=== PATIENT | male | born 1945 | race Caucasian/White ===

== ENCOUNTER 2018-06-28 14:53 | Inpatient (IN) | payer MEDICARE, OTHER ==
[~2018-06-28] VITALS: Ht 185.4 cm; Wt 68.5 kg
--- NOTE | 2018-06-28 15:00 | NUR ---
PT BIB RA 860 from home with c/o generealized weakness, PT IS AAOX3, NOT IN RESPIRATORY DISTRESS, V/S STABLE, KEPT RESTED AND COMFORTABLE, AWAITING ER MD FOR EVAL.
--- NOTE | 2018-06-28 15:20 | NUR ---
LABS DRAWNED AND SENT TO LAB. AWAITING RESULTS.
[2018-06-28 16:19] LABS: BASOPHILS % (AUTO) 0.2 % (0.0-2.0); EOSINOPHILS % (AUTO) 0.4 % (0.0-6.0); HEMATOCRIT 32 % (39-51); HEMOGLOBIN 10.8 g/dL (13.5-17.5); LYMPHOCYTES # (AUTO) 0.8 /CMM (0.8-4.8); MEAN CORPUSCULAR HGB CONC 34 g/dl (31.0-36.0); MEAN CORPUSCULAR VOLUME 97 fL (80-96); MONOCYTES # (AUTO) 0.4 /CMM (0.1-1.30); MONOCYTES % (AUTO) 7.9 % (2.0-12.0); NEUTROPHILS # (AUTO) 4.1 /CMM (1.8-8.9); NEUTROPHILS % (AUTO) 76.5 % (43.0-81.0); PLATELET COUNT (AUTO) 118 /CMM (150-450); RED BLOOD CELL COUNT(AUTO) 3.26 MIL/uL (4.5-6.0); WHITE BLOOD COUNT (AUTO) 5.3 K/uL (4.3-11.0)
[2018-06-28 16:31] LABS: CALCIUM, SERUM 8.8 mg/dL (8.5-10.1); CARBON DIOXIDE 21 mmol/L (21-32); CHLORIDE 93 mmol/L (98-107); CREATININE 1.5 mg/dL (0.6-1.3); GLUCOSE 96 mg/dL (74-106); POTASSIUM 4.2 mmol/L (3.5-5.1); SODIUM SERUM 130 mmol/L (136-145); UREA NITROGEN, BLOOD 45 mg/dL (7-18)
[2018-06-28 16:38] LABS: ALANINE AMINOTRANSFERASE 34 U/L (12-78); ALKALINE PHOSPHATASE 91 U/L (46-116); ASPARTATE AMINOTRANSFERASE 74 U/L (15-37); BILIRUBIN,DIRECT 0.8 mg/dL (0.0-0.2); BILIRUBIN,TOTAL 1.7 mg/dL (0.2-1.0); TOTAL PROTEIN, SERUM 6.7 g/dL (6.4-8.2)
--- NOTE | 2018-06-28 17:31 | NUR ---
URINE SPECIMEN COLLECTED AND SENT TO LAB.
[2018-06-28] MEDS ORDERED: ASPI-992 PO (17:54)
[2018-06-28] MEDS ORDERED: ATOR40TA PO (17:54)
[2018-06-28] MEDS ORDERED: FOLI1TAB16 PO (17:54)
[2018-06-28] MEDS ORDERED: THIA100T74 PO (17:54)
[2018-06-28] MEDS ORDERED: TRAZ-182 PO (17:54)
[2018-06-28] MEDS ORDERED: AMLO5TAB9 PO (17:54)
[2018-06-28 18:01] LABS: APPEARANCE,URINE Clear (CLEAR); BILIRUBIN,URINE LARGE (NEGATIVE); BLOOD, URINE Trace-intact Ery/uL (NEGATIVE); COLOR,URINE Yellow (YELLOW); KETONES,URINE 80 (NEGATIVE); LEUKOCYTE ESTERASE ,URINE Negative (NEGATIVE); NITRITE, URINE Negative (NEGATIVE); PH,URINE 5.5 (5.0-8.0); PROTEIN,URINE 30 mg/dl (NEGATIVE); UGLUCOSE Negative (NEGATIVE)
[2018-06-28 18:24] LABS: BACTERIA,URINE Few /HPF (None Seen); SQUAMOUS EPITHELIAL CELL,UR Few /HPF (None Seen); WBC,URINE 0-2 /HPF (0-3)
[2018-06-28] MEDS ORDERED: IV NS 0.9% 1,000 ML BAG IV ONE (19:00)
[2018-06-28] MEDS ORDERED: LORAZEPAM 1 MG TABLET ONE (19:12)
[2018-06-28] MEDS ORDERED: AMLODIPINE BESYLATE 5 MG TABLET ONE (19:12)
--- NOTE | 2018-06-28 19:18 | NUR ---
REPORT GIVEN TO NIMESH WILSON FOR JC.
[2018-06-28] MEDS ORDERED: LORAZEPAM 1 MG TABLET PO ONE (19:30)
[2018-06-28] MEDS ORDERED: AMLODIPINE BESYLATE 5 MG TABLET PO ONE (19:30)
[2018-06-28] MEDS ORDERED: ONDANSETRON HCL/PF 4 MG/2 ML VIAL IVP PRN (20:30)
[2018-06-28] MEDS ORDERED: MAGNESIUM HYDROXIDE 30 ML UDC PO PRN (20:30)
[2018-06-28] MEDS ORDERED: HYDROCODONE/APAP 5/325MG 1 EACH TABLET PO PRN (20:30)
[2018-06-28] MEDS ORDERED: ACETAMINOPHEN 325 MG TABLET PO PRN (20:30)
[2018-06-28] MEDS ORDERED: Z GUARD REMEDY 2 OZ OINT TP PRN (20:30)
[2018-06-28] MEDS ORDERED: MAG HYDROX/AL HYDROX/SIMETH 30 ML UDC PO PRN (20:30)
--- NOTE | 2018-06-28 20:44 | NUR ---
PT ADMIT TO TELE ROOM 304-[address] HILL
[2018-06-28] MEDS ORDERED: DEXTROSE 50%-WATER 50 ML DISP.SYRIN IV PRN (21:00)
--- NOTE | 2018-06-28 21:10 | NUR ---
REPORT GIVEN TO NIMESH DEAN FOR JC
[2018-06-28 21:30] VITALS: BP 122/77
[2018-06-28] MEDS: IV NS 0.9% 1,000 ML IV PRN (21:46)
[2018-06-28 22:00] VITALS: BP 122/77
[2018-06-28] MEDS: INSULIN REGULAR, HUMAN 100 UNIT/ML 3 ML VIAL SQ PRN (22:19)
[2018-06-28] MEDS: ATORVASTATIN 40 MG TABLET PO SCH (22:21)
[2018-06-28] MEDS: TRAZODONE 50 MG TABLET PO SCH (22:22)
[2018-06-28] MEDS: BLOOD SUGAR DIAGNOSTIC 1 EACH STRIP IN SCH (22:24)
--- NOTE | 2018-06-28 22:30 | NUR ---
INFRASTRUCTURE PROJECT MANAGER RECEIVE PT VIA [employer] FROM [employer].Sun Number AT 2130, PT A/O X3 WITH PERIOD OF FORGETFULNESS, RESPIRATIONS EVEN AN UNLABORED. ADMIT TO TELE WITH READING OF SINUS RHYTHM 71 IN THE TELE MONITOR, HEAD TO TOE ASSESSMENT IS DONE. NO CHEST PAIN, NOT IN DISTRESS. KEPT CLEAN AND DRY AND COMFORT. WILL CONTINUE TO MTR.
[2018-06-29] VITALS (7 sets, daily range): BP systolic 103–148; BP diastolic 63–114
[2018-06-29] MEDS: BLOOD SUGAR DIAGNOSTIC 1 EACH STRIP IN SCH ×4 (06:04→21:11)
[2018-06-29] MEDS: INSULIN REGULAR, HUMAN 100 UNIT/ML 3 ML VIAL SQ PRN ×4 (06:05→21:22)
--- NOTE | 2018-06-29 06:17 | NUR ---
RN CLOSING NOTE PT IN BED RESTING ASLEEP AND EASILY AWAKEN. TOLERATING ROOM AIR 100%. SINUS RHYTHM 70 IN THE TELE MONITOR NO S/S OF RESP DISTRESS OR SOB. GOOD SKIN CARE PROVIDED. ALL PT NEEDS ANTICIPATED AND MET. KEPT CLEAN AND DRY AND COMFORT, SAFETY MEASURES IN PLACE, CALL LIGHT WITHIN REACH. WILL ENDORSE TO FIRE CHIEF FOR JC.
[2018-06-29 06:26] LABS: BASOPHILS % (AUTO) 0.2 % (0.0-2.0); EOSINOPHILS % (AUTO) 1.6 % (0.0-6.0); HEMATOCRIT 26 % (39-51); HEMOGLOBIN 8.8 g/dL (13.5-17.5); LYMPHOCYTES % (AUTO) 24.1 % (20.0-44.0); MEAN CORPUSCULAR HGB CONC 34 g/dl (31.0-36.0); MEAN CORPUSCULAR VOLUME 97 fL (80-96); MONOCYTES # (AUTO) 0.5 /CMM (0.1-1.30); NEUTROPHILS # (AUTO) 2.7 /CMM (1.8-8.9); NEUTROPHILS % (AUTO) 63.1 % (43.0-81.0); PLATELET COUNT (AUTO) 83 /CMM (150-450); RED BLOOD CELL COUNT(AUTO) 2.67 MIL/uL (4.5-6.0); WHITE BLOOD COUNT (AUTO) 4.3 K/uL (4.3-11.0)
[2018-06-29 06:38] LABS: CALCIUM, SERUM 7.8 mg/dL (8.5-10.1); CARBON DIOXIDE 24 mmol/L (21-32); CHLORIDE 98 mmol/L (98-107); CREATININE 1.3 mg/dL (0.6-1.3); GLUCOSE 87 mg/dL (74-106); MAGNESIUM 1.4 mg/dL (1.8-2.4); PHOSPHORUS 2.9 mg/dL (2.5-4.9); POTASSIUM 3.5 mmol/L (3.5-5.1); SODIUM SERUM 133 mmol/L (136-145); UREA NITROGEN, BLOOD 39 mg/dL (7-18)
[2018-06-29 07:04] LABS: CHOLESTEROL 124 mg/dL (<200); HDL CHOLESTEROL 55 mg/dL (40-60); LDL 55 mg/dL (0-99); THYROID STIMULATING HORMONE 7.915 uIU/mL (0.358-3.74); TRIGLYCERIDES 106 mg/dL (30-150)
--- NOTE | 2018-06-29 07:20 | NUR ---
RN OPENING NOTES PT WAS RECEIVED ON BED AT LOWEST AND LOCKED POSITION WITH SIDE RAILS UP X2, A/O X3, BREATHING EVEN AND UNLABORED ON RA, NO S/S OF PAIN OR DISTRESS NOTED, IV PATENT AND INTACT, SAFETY PRECAUTIONS IN PLACE, CALL LIGHT WITHIN REACH, WILL MONITOR ACCORDINGLY
[2018-06-29 09:16] LABS: LYMPHOCYTES % (MANUAL) 17 % (16-48); MONOCYTES % (MANUAL) 7 % (0-11.0); NEUTROPHILS % (MANUAL) 76 (42-76)
[2018-06-29] MEDS: Magnesium 1GM/D5W 100ML PREMIX 100 ML IV SCH ×4 (09:44→16:12)
[2018-06-29] MEDS: AMLODIPINE BESYLATE 5 MG TABLET PO SCH (09:44)
[2018-06-29] MEDS: FOLIC ACID 1 MG TABLET PO SCH (09:44)
[2018-06-29] MEDS: THIAMINE HCL 100 MG TABLET PO SCH (09:44)
--- NOTE | 2018-06-29 12:17 | NUR ---
RN NOTES PT BG WAS NOTED TO BE 171, 3 UNITS OF INSULIN WERE REQUIRED TO BE GIVING PER SLIDING SCALE BUT PT REFUSED. EDUCATION WAS PROVIDED BUT HE STILL REFUSED
[2018-06-29] MEDS ORDERED: ASPIRIN 81 MG TAB.CHEW PO SCH (13:00)
[2018-06-29 16:00] LABS: IRON, SERUM 45 ug/dl (50-175); TOTAL IRON BINDING CAPACITY 137 ug/dl (250-450)
--- NOTE | 2018-06-29 16:20 | NUR ---
RN NOTES PT WAS TAKEN DOWN AT THIS FOR MRI
--- NOTE | 2018-06-29 17:09 | NUR ---
RN NOTES PT WAS BROUGHT BACK FROM MRI AT THIS TIME
--- NOTE | 2018-06-29 17:49 | NUR ---
RN NOTES PT BLOOD GLUCOSE WAS NOTED TO BE 162, PT REFUSED INSULIN AT THIS TIME SAYING HE DOES NOT WANT TO BE USING IT, EDUCATION WAS PROVIDED. WILL MONITOR ACCORDINGLY
--- NOTE | 2018-06-29 18:53 | NUR ---
RN CLOSING NOTES PT IN BED AT LOWEST AND LOCKED POSITION WITH SIDE RAILS UP X2, A/O X3, BREATHING EVEN AND UNLABORED ON RA, NO S/S OF PAIN OR DISTRESS NOTED, IV PATENT AND INTACT, SAFETY PRECAUTIONS IN PLACE, CALL LIGHT WITHIN REACH, ALL NEEDS ATTENDED TO, WILL ENDORSE TO SHOWROOM SALES CONSULTANT FOR JC
--- NOTE | 2018-06-29 19:00 | NUR ---
MS RN OPENING NOTES Received pt A/O X3, awake on Gentile's position on bed. On RA, no SOB/respiratory discomfort noted. Denies discomfort at this time. With patent peripheral IV line TRINIDAD Taylor#20, SL. On fall precaution. Kept bed low and locked, siderails x2 up. Call light at bedside. Bed alarm on. Will continue to monitor accordingly.
[2018-06-29] MEDS: TRAZODONE 50 MG TABLET PO SCH (21:10)
[2018-06-29] MEDS: ATORVASTATIN 40 MG TABLET PO SCH (21:10)
--- NOTE | 2018-06-29 21:23 | NUR ---
MS RN NOTES Charlotteu-patti kiran, BS - 152. Patient refused to take Insulin at this time. Explained to patient the benifits of not taking insulin. Patient verbalized understanding but insisted to refused Insulin. Patient A/O, eating independently. Will continue to monitor accordingly.
--- NOTE | 2018-06-29 21:30 | NUR ---
Met with patient, states he lives locally alone on the second floor apartment. States his baseline he was ambulatory and independent with adl's and was driving. Few days prior to admit he was feeling sick and weak, fell at home and with difficulty ambulating. Has no DME or homehealth reported. His pcp is from [place].States has limited source of support, has a sister in [place] and a brother in [place] but states he does not associate with them a lot . Patient agreed to go to local SNF for rehab. referral faxed to [place] contracted SNF [facility] and [facility] [facility] . Addendum: 06/29/18 at 2133 by YOUNG KENNY RN Amended: Links added.
[2018-06-29] MEDS: IV NS 0.9% 1,000 ML IV PRN (21:40)
[2018-06-29] MEDS: ZOLPIDEM TARTRATE 5 MG TABLET PO PRN (22:51)
--- NOTE | 2018-06-30 06:17 | NUR ---
MS RN CLOSING NOTES Patient awake on bed with patent peripheral IV line RAC G#20 with NS infusing well @ 75ml/hr as ordered. Patient on RA, no SOB/respiratory distress noted. Patient denies any discomfort at this time. Request to check BS - 124. No insulin coverage. Patient asked for coffee, given with caution. All needs attended. Kept bed low and locked. On fall precaution. Call light always at bedside. No new unusualities noted throughout the shift. endorsed to the next shift for JC.
[2018-06-30 06:39] LABS: CALCIUM, SERUM 7.5 mg/dL (8.5-10.1); CARBON DIOXIDE 27 mmol/L (21-32); CHLORIDE 100 mmol/L (98-107); CREATININE 1.2 mg/dL (0.6-1.3); GLUCOSE 132 mg/dL (74-106); MAGNESIUM 1.7 mg/dL (1.8-2.4); PHOSPHORUS 1.5 mg/dL (2.5-4.9); POTASSIUM 3.8 mmol/L (3.5-5.1); SODIUM SERUM 133 mmol/L (136-145); UREA NITROGEN, BLOOD 28 mg/dL (7-18)
[2018-06-30 07:18] LABS: BASOPHILS % (AUTO) 0.6 % (0.0-2.0); EOSINOPHILS % (AUTO) 1.5 % (0.0-6.0); HEMATOCRIT 24 % (39-51); HEMOGLOBIN 8.1 g/dL (13.5-17.5); LYMPHOCYTES # (AUTO) 0.8 /CMM (0.8-4.8); LYMPHOCYTES % (AUTO) 23.9 % (20.0-44.0); MEAN CORPUSCULAR HGB CONC 35 g/dl (31.0-36.0); MEAN CORPUSCULAR VOLUME 96 fL (80-96); MONOCYTES # (AUTO) 0.5 /CMM (0.1-1.30); MONOCYTES % (AUTO) 14.2 % (2.0-12.0); NEUTROPHILS # (AUTO) 2.1 /CMM (1.8-8.9); NEUTROPHILS % (AUTO) 59.8 % (43.0-81.0); PLATELET COUNT (AUTO) 88 /CMM (150-450); RED BLOOD CELL COUNT(AUTO) 2.44 MIL/uL (4.5-6.0); WHITE BLOOD COUNT (AUTO) 3.4 K/uL (4.3-11.0)
[2018-06-30] MEDS: BLOOD SUGAR DIAGNOSTIC 1 EACH STRIP IN SCH ×4 (07:26→21:44)
--- NOTE | 2018-06-30 07:52 | NUR ---
MS RN Opening Note Received patient awake, resting in bed. Patient alert and oriented x 3 with episodes of forgetfullness, able to make needs known. Respirations even and unlabored, saturating on room air. No acute distress noted and no complaints of pain at this time. Peripheral IV access on right AC 20 gauge, patent, intact and infusing NS at 75 mL/hr. Safety and Fall precautions in place: bed in lowest and locked position, side rails up x 2, bed alarm on, call light within reach. Reviewed safety measures and plan of care with patient, verbalized understanding. Will continue to monitor and intervene as needed.
[2018-06-30 08:00] VITALS: BP 117/66
[2018-06-30] MEDS: IV NS 0.9% 1,000 ML IV PRN ×2 (08:23→20:51)
[2018-06-30] MEDS: THIAMINE HCL 100 MG TABLET PO SCH (08:25)
[2018-06-30] MEDS: FOLIC ACID 1 MG TABLET PO SCH (08:25)
[2018-06-30] MEDS: AMLODIPINE BESYLATE 5 MG TABLET PO SCH (08:25)
[2018-06-30] MEDS: Magnesium 1GM/D5W 100ML PREMIX 100 ML IV SCH ×2 (08:25→09:39)
[2018-06-30] MEDS: NEUTRA PHOS 1 POWD.PACKET PO SCH ×2 (08:26→16:51)
[2018-06-30 09:37] LABS: EOSINOPHILS % (MANUAL) 2 % (0-4); LYMPHOCYTES % (MANUAL) 29 % (16-48); MONOCYTES % (MANUAL) 13 % (0-11.0); NEUTROPHILS % (MANUAL) 56 (42-76)
--- NOTE | 2018-06-30 12:00 | NUR ---
Mealtime blood glucose check of 155. Patient aware; educated on sliding scale insulin protocol for diabetes management. Patient refused. MD aware.
[2018-06-30] MEDS: INSULIN REGULAR, HUMAN 100 UNIT/ML 3 ML VIAL SQ PRN (12:10)
[2018-06-30 16:00] VITALS: BP 129/81
--- NOTE | 2018-06-30 19:00 | NUR ---
MS RN Closing Note Patient currently awake, resting in bed. Patient alert and oriented x 3 with episodes of forgetfulness, able to make needs known. Respirations even and unlabored, saturating on room air. No acute distress noted and no complaints of pain at this time. Peripheral IV access on right AC 20 gauge, patent, intact and infusing NS at 75 mL/hr. Safety and Fall precautions in place: bed in lowest and locked position, side rails up x 2, bed alarm on, call light within reach. No acute events, all due medications given as ordered. Reviewed safety measures and plan of care with patient, verbalized understanding. Will endorse to stencil inspector RN for continuity of care.
--- NOTE | 2018-06-30 19:10 | NUR ---
MS RN OPENING NOTES Received patient awake on Gentile's position on bed watching TV, with patent peripheral IV line RAC G#20 with NS infusing well @ 100ml/hr as ordered. No s/sx of infiltration noted. Denies discomfort at this time. On RA, no SOB/respiratory distress noted. Kept on bed comfortable. Kept bed low and locked. Call light at bedside. Will continue to monitor accordingly.
[2018-06-30 20:00] VITALS: BP 123/77
[2018-06-30] MEDS: TRAZODONE 50 MG TABLET PO SCH (21:44)
[2018-06-30] MEDS: ZOLPIDEM TARTRATE 5 MG TABLET PO PRN (23:32)
[2018-07-01] MEDS: BLOOD SUGAR DIAGNOSTIC 1 EACH STRIP IN SCH ×4 (06:36→21:59)
--- NOTE | 2018-07-01 06:37 | NUR ---
MS RN CLOSING NOTES Patient awake on semi-Gentile's with patent peripheral IV line RAC G#20 with NS infusing well @ 100ml/hr as ordered. No new unusualities noted throughout the shift. All needs attended. Due meds given as ordered. Kept bed low and locked, exit alarm on. Call light at bedside. Endorsed to the next shift.
[2018-07-01 06:45] LABS: BASOPHILS % (AUTO) 0.5 % (0.0-2.0); EOSINOPHILS % (AUTO) 0.8 % (0.0-6.0); HEMATOCRIT 25 % (39-51); HEMOGLOBIN 8.7 g/dL (13.5-17.5); LYMPHOCYTES % (AUTO) 21.1 % (20.0-44.0); MEAN CORPUSCULAR HGB CONC 35 g/dl (31.0-36.0); MEAN CORPUSCULAR VOLUME 96 fL (80-96); MONOCYTES # (AUTO) 0.9 /CMM (0.1-1.30); MONOCYTES % (AUTO) 18.7 % (2.0-12.0); NEUTROPHILS # (AUTO) 2.7 /CMM (1.8-8.9); NEUTROPHILS % (AUTO) 58.9 % (43.0-81.0); PLATELET COUNT (AUTO) 114 /CMM (150-450); WHITE BLOOD COUNT (AUTO) 4.5 K/uL (4.3-11.0)
[2018-07-01 06:53] LABS: ALANINE AMINOTRANSFERASE 27 U/L (12-78); ALBUMIN 2.4 g/dL (3.4-5.0); ALKALINE PHOSPHATASE 87 U/L (46-116); ASPARTATE AMINOTRANSFERASE 50 U/L (15-37); BILIRUBIN,TOTAL 0.7 mg/dL (0.2-1.0); CALCIUM, SERUM 7.7 mg/dL (8.5-10.1); CARBON DIOXIDE 27 mmol/L (21-32); CHLORIDE 102 mmol/L (98-107); CREATININE 1.1 mg/dL (0.6-1.3); GLUCOSE 112 mg/dL (74-106); MAGNESIUM 1.6 mg/dL (1.8-2.4); PHOSPHORUS 1.9 mg/dL (2.5-4.9); POTASSIUM 3.7 mmol/L (3.5-5.1); SODIUM SERUM 136 mmol/L (136-145); TOTAL PROTEIN, SERUM 5.3 g/dL (6.4-8.2); UREA NITROGEN, BLOOD 18 mg/dL (7-18)
[2018-07-01 07:22] LABS: BAND % (MANUAL) 1 % (0.0-5.0); EOSINOPHILS % (MANUAL) 2 % (0-4); LYMPHOCYTES % (MANUAL) 21 % (16-48); MONOCYTES % (MANUAL) 16 % (0-11.0); NEUTROPHILS % (MANUAL) 60 (42-76)
--- NOTE | 2018-07-01 07:30 | NUR ---
PT RECEIVED RESTING COMFORTABLY IN BED. NO S/S OR C/O PAIN OR DISTRESS NOTED. SIDE RAILS UP X2, CALL LIGHT LEFT WITHIN REACH. WILL CONTINUE PLAN OF CARE.
[2018-07-01] MEDS: FOLIC ACID 1 MG TABLET PO SCH (08:26)
[2018-07-01] MEDS: THIAMINE HCL 100 MG TABLET PO SCH (08:26)
[2018-07-01] MEDS: AMLODIPINE BESYLATE 5 MG TABLET PO SCH (08:26)
[2018-07-01] MEDS: Magnesium 1GM/D5W 100ML PREMIX 100 ML IV SCH ×2 (09:27→13:13)
[2018-07-01] MEDS: NEUTRA PHOS 1 POWD.PACKET PO SCH ×2 (09:27→16:57)
[2018-07-01 20:00] VITALS: BP 124/72
[2018-07-01 20:24] VITALS: BP 124/72
[2018-07-01] MEDS: TRAZODONE 50 MG TABLET PO SCH (21:33)
[2018-07-01] MEDS: ZOLPIDEM TARTRATE 5 MG TABLET PO PRN (22:08)
--- NOTE | 2018-07-02 04:45 | NUR ---
Patient is confused. States "I'm downstairs. I'm trying to ran out of here. I don't want the IV anymore. It is making me pee too much." Patient pulled out his peripheral IV and refusing a new IV placement. Patient educated about the importance of the IV line.
[2018-07-02] MEDS: BLOOD SUGAR DIAGNOSTIC 1 EACH STRIP IN SCH ×4 (06:18→22:30)
--- NOTE | 2018-07-02 07:52 | NUR ---
MS RN NOTES PATIENT RECEIVED RESTING INSIDE ROOM. AWAKE, ALERT AND ORIENTED X 3, VERBALLY RESPONSIVE AND RESPONDS TO VERBAL AND TACTILE STIMULI. BREATHING EVEN AND UNLABORED. NO ACUTE DISTRESS NOTED. PATIENT DENIES ANY PAIN OR DISCOMFORT. RECEIVED ENDORSEMENT FROM PREVIOUS SHIFT THAT PATIENT HAS PERIODS OF FORGETFULNESS AND CONFUSION. SAFETY MEASURES IN PLACE. BED LOCKED AND IN LOW POSITION. BED ALARM ON. BILATERAL UPPER SIDE RAILS UP AND LOCKED. FALL PRECAUTIONS IN PLACE. CALL LIGHT WITHIN EASY REACH.
[2018-07-02 08:00] VITALS: BP 131/71
[2018-07-02] MEDS: FOLIC ACID 1 MG TABLET PO SCH (08:31)
[2018-07-02] MEDS: THIAMINE HCL 100 MG TABLET PO SCH (08:31)
[2018-07-02] MEDS: AMLODIPINE BESYLATE 5 MG TABLET PO SCH (08:31)
--- NOTE | 2018-07-02 11:00 | NUR ---
MS RN NOTES PATIENT PULLED OUT IV ON PREVIOUS SHIFT AND REFUSES TO HAVE ANOTHER IV INSERTION. DR. BENAVIDES AWARE. NO NEW ORDERS AT THIS TIME. WILL CONTINUE TO MONITOR
--- NOTE | 2018-07-02 11:38 | NUR ---
WOUND CARE CONSULT: PT PRESENTS INDEPENDENT WITH BED MOBILITY AND CONTINENT WITH MULTIPLE BRUISES AND DRY ABRASIONS ALL OVER INCLUDING LOWER BUTTOCKS, PRESENT ON ADMISSION. NO DRAINAGE NOTED AT THIS TIME. WILL SEE PRN.
[2018-07-02 11:44] LABS: CALCIUM, SERUM 7.8 mg/dL (8.5-10.1); CARBON DIOXIDE 26 mmol/L (21-32); CHLORIDE 99 mmol/L (98-107); CREATININE 1.2 mg/dL (0.6-1.3); GLUCOSE 106 mg/dL (74-106); MAGNESIUM 1.4 mg/dL (1.8-2.4); POTASSIUM 3.8 mmol/L (3.5-5.1); SODIUM SERUM 131 mmol/L (136-145); UREA NITROGEN, BLOOD 16 mg/dL (7-18)
--- NOTE | 2018-07-02 12:01 | NUR ---
MS RN NOTES PATIENT SEEN AND EXAMINED BY DR. BENAVIDES, WITH ORDERS FOR BMP AND MAGNESIUM LEVEL. LAB TAKEN AND RESULTS RELAYED TO DR. BENAVIDES, INCLUDING MAGNESIUM LEVEL OF 1.4. DR. BENAVIDES WITH ORDER FOR MAGNESIUM 800MG PO X 1 DOSE. ORDER NOTED AND CARRIED OUT. WILL CONTINUE TO MONITOR
[2018-07-02] MEDS ORDERED: MAGNESIUM OXIDE 400 MG TABLET PO ONE (12:30)
[2018-07-02 16:00] VITALS: BP 132/71
--- NOTE | 2018-07-02 18:41 | NUR ---
MS RN NOTES PATIENT RESTING INSIDE ROOM. AWAKE, ALERT AND ORIENTED. VERBALLY RESPONSIVE AND RESPONDS TO VERBAL AND TACTILE STIMULI. BREATHING EVEN AND UNLABORED. DENIES ANY PAIN OR DISCOMFORT. NO CHANGES IN LOC NOTED. NO IV SITE AT THIS TIME. MD AWARE. NO NEW ORDERS AT THIS TIME. ALL NURSING NEEDS ATTENDED AND MET. PATIENT KEPT CLEAN, DRY AND COMFORTABLE. WILL ENDORSE TO INCOMING SHIFT FOR JC. BED LOCKED AND IN LOW POSITION. BILATERAL UPPER SIDE RAILS UP AND LOCKED. CALL LIGHT WITHIN EASY REACH
--- NOTE | 2018-07-02 19:15 | NUR ---
MS RN NOTES Received patient A/O X3, awake, watching TV. No IV access present. Patient is supposed to be discharged today but patient requested to postponed his discharge due to weather condition. All needs attended. Kept clean, dry and comfortable. Call light at bedside will continue to monitor accordingly.
[2018-07-02 20:00] VITALS: BP 149/66
[2018-07-02] MEDS: TRAZODONE 50 MG TABLET PO SCH (21:42)
--- NOTE | 2018-07-02 22:00 | NUR ---
MS RN NOTES DUE MEDS GIVEN ORDERED. BS - 105 NO INSULIN COVERAGE.
[2018-07-02] MEDS: ZOLPIDEM TARTRATE 5 MG TABLET PO PRN (22:41)
[2018-07-03] MEDS: BLOOD SUGAR DIAGNOSTIC 1 EACH STRIP IN SCH ×2 (06:33→11:44)
[2018-07-03 06:43] LABS: CALCIUM, SERUM 7.6 mg/dL (8.5-10.1); CARBON DIOXIDE 27 mmol/L (21-32); CHLORIDE 104 mmol/L (98-107); CREATININE 1.1 mg/dL (0.6-1.3); GLUCOSE 97 mg/dL (74-106); MAGNESIUM 1.5 mg/dL (1.8-2.4); PHOSPHORUS 2.5 mg/dL (2.5-4.9); SODIUM SERUM 140 mmol/L (136-145); UREA NITROGEN, BLOOD 15 mg/dL (7-18)
--- NOTE | 2018-07-03 06:45 | NUR ---
MS RN CLOSING NOTES Patient asleep on bed, no new complaints made throughout the shift. All needs attended and met. For D/C to local SNF. Endorsed to the next shift.
--- NOTE | 2018-07-03 07:15 | NUR ---
MS RN NOTES PATIENT RECEIVED RESTING INSIDE ROOM. AWAKE, ALERT AND ORIENTED, VERBALLY RESPONSIVE AND RESPONDS TO VERBAL AND TACTILE STIMULI. NO ACUTE DISTRESS AT THIS TIME. DENIES ANY PAIN OR DISCOMFORT. NO IV ON PATIENT, CONTINUES TO REFUSE IV INSERTION. WILL CONTINUE TO MONITOR. BED LOCKED AND IN LOW POSITION. BILATERAL UPPER SIDE RAILS UP AND LOCKED. CALL LIGHT WITHIN EASY REACH
[2018-07-03 08:00] VITALS: BP 166/87
[2018-07-03 08:33] VITALS: BP 166/87
[2018-07-03] MEDS: FOLIC ACID 1 MG TABLET PO SCH (08:33)
[2018-07-03] MEDS: AMLODIPINE BESYLATE 5 MG TABLET PO SCH (08:33)
[2018-07-03] MEDS: THIAMINE HCL 100 MG TABLET PO SCH (08:33)
[2018-07-03] MEDS ORDERED: Magnesium 1GM/D5W 100ML PREMIX 100 ML IV SCH ×2 (09:28→09:30)
[2018-07-03] MEDS ORDERED: MAGNESIUM OXIDE 400 MG TABLET PO ONE (10:00)
[2018-07-03] MEDS: INSULIN REGULAR, HUMAN 100 UNIT/ML 3 ML VIAL SQ PRN (11:45)
--- NOTE | 2018-07-03 12:10 | NUR ---
MS RN NOTES PATIENT FOR DISCHARGE TODAY. TO DISCHARGE TO [facility]. PLACED CALL ([phone]) AND SPOKE TO NIMESH WYNN. GAVE REPORT. PATIENT AWARE AND VERBALIZED UNDERSTANDING. WILL CONTINUE TO MONITOR
--- NOTE | 2018-07-03 13:44 | NUR ---
MS RN NOTES PATIENT FOR DISCHARGE TODAY, TO TRANSFER TO [facility]. DISCHARGE TEACHING AND INSTRUCTIONS GIVEN AND PATIENT VERBALIZED UNDERSTANDING. ALL BELONGINGS COMPLETE, NO REPORT OF MISSING INVENTORY. PATIENT LEFT UNIT AT 1340 VIA GURNEY IN STABLE CONDITION, ACCOMPANIED BY 2 KILN LABOURER. BREATHING EVEN AND UNLABORED. DENIES ANY PAIN OR DISCOMFORT. NO CHANGES IN LOC NOTED. PATIENT CALM AND RELAXED. NO NEW SKIN BREAKDOWN NOTED. NO IV SITE. MD AWARE OF DISCHARGE
== END 2018-07-03 13:40 | DRG 640 ==
LOC: ER 14:56 → TELE 21:20 → MED 06-29 09:16
PROVIDERS: ATTEND Internal Medicine
DX: E51.2 Wernicke's encephalopathy (principal); N17.0 Acute kidney failure with tubular necrosis; M48.54XA Collapsed vertebra, not elsewhere classified, thoracic region, initial encounter for fracture; E87.1 Hypo-osmolality and hyponatremia; E44.1 Mild protein-calorie malnutrition; S00.11XA Contusion of right eyelid and periocular area, initial encounter; R29.6 Repeated falls; E11.9 Type 2 diabetes mellitus without complications; D69.6 Thrombocytopenia, unspecified; D64.9 Anemia, unspecified; R74.0 Nonspecific elevation of levels of transaminase and lactic acid dehydrogenase [LDH]; E83.42 Hypomagnesemia; E80.6 Other disorders of bilirubin metabolism; I10 Essential (primary) hypertension; G93.0 Cerebral cysts; F10.10 Alcohol abuse, uncomplicated; M25.461 Effusion, right knee; S02.2XXA Fracture of nasal bones, initial encounter for closed fracture; K04.7 Periapical abscess without sinus; Z79.82 Long term (current) use of aspirin; Z79.899 Other long term (current) drug therapy; M50.30 Other cervical disc degeneration, unspecified cervical region
CPT/HCPCS: 36415; 70450-TC; 70486-TC; 70551-TC; 71045-TC; 72110-TC; 72125-TC; 73030-TC; 73560-TC; 76700-TC; 80048-TC; 80053-TC; 80061-TC; 80076-TC; 81000-TC; 82728-TC; 82962-TC; 83540-TC; 83735-TC; 84100-TC; 84425; 84439-TC; 84443-TC; 84484-TC; 85025-TC; 85730-TC; 87081-TC; 93307-TC; 93880-TC; 97110-TC; 97116-TC; 97530-TC; G0378; J1815; J3475; J7030; L0172

== ENCOUNTER 2020-01-08 16:38 | Inpatient (IN) | payer MEDICARE, OTHER ==
[~2020-01-08] VITALS: Ht 175.3 cm; Wt 55.1 kg
[~2020-01-08 16:38] MED LIST: AMLO5TAB9 PO; ASPI-992 PO; ATOR40TA PO; FOLI1TAB16 PO; THIA100T74 PO; TRAZ-182 PO
[2020-01-08] MEDS ORDERED: IV NS 0.9% 1,000 ML BAG IV ONE (17:00)
[2020-01-08] MEDS ORDERED: ONDANSETRON HCL/PF 4 MG/2 ML VIAL IVP ONE (17:00)
[2020-01-08] MEDS ORDERED: ONDANSETRON HCL/PF 4 MG/2 ML VIAL ONE (17:01)
--- NOTE | 2020-01-08 17:16 | NUR ---
PT TO CT VIA WHEELCHAIR
[2020-01-08] MEDS ORDERED: FOLIC ACID 1 MG TABLET ONE (17:18)
[2020-01-08 17:19] LABS: BASOPHILS % (AUTO) 0.4 % (0.0-2.0); EOSINOPHILS % (AUTO) 0.5 % (0.0-6.0); HEMATOCRIT 46 % (39-51); HEMOGLOBIN 15.1 g/dL (13.5-17.5); LYMPHOCYTES % (AUTO) 23.5 % (20.0-44.0); MEAN CORPUSCULAR HGB CONC 33 g/dl (31.0-36.0); MEAN CORPUSCULAR VOLUME 88 fL (80-96); MONOCYTES # (AUTO) 0.8 /CMM (0.1-1.30); MONOCYTES % (AUTO) 9.1 % (2.0-12.0); NEUTROPHILS # (AUTO) 5.6 /CMM (1.8-8.9); NEUTROPHILS % (AUTO) 66.5 % (43.0-81.0); PLATELET COUNT (AUTO) 255 /CMM (150-450); RED BLOOD CELL COUNT(AUTO) 5.16 MIL/uL (4.5-6.0); WHITE BLOOD COUNT (AUTO) 8.3 K/uL (4.3-11.0)
[2020-01-08] MEDS ORDERED: THIAMINE HCL 100 MG TABLET ONE (17:19)
--- NOTE | 2020-01-08 17:27 | NUR ---
PT BACK FROM CT.
[2020-01-08] MEDS ORDERED: THIAMINE HCL 100 MG TABLET PO ONE (17:30)
[2020-01-08] MEDS ORDERED: FOLIC ACID 1 MG TABLET PO ONE (17:30)
[2020-01-08 17:36] LABS: MAGNESIUM 1.7 mg/dL (1.8-2.4)
--- NOTE | 2020-01-08 17:36 | NUR ---
BIBRA FROM HOME, GLF UNABLE TO STAND UP. ABRASION TO LFA NOTED. PT AAOX3, VSS. RR EVEN & UNLABORED. DENIES CP, SOB, WEAKNESS AT THIS TIME. POSS ETOH. PT SEEN & EVAL'D BY DR. ARMIJO. WILL CONT TO MONITOR.
[2020-01-08 17:37] LABS: ALCOHOL, BLOOD < 3 mg/dL (0-0)
[2020-01-08 17:44] LABS: CALCIUM, SERUM 8.8 mg/dL (8.5-10.1); CARBON DIOXIDE 21 mmol/L (21-32); CHLORIDE 97 mmol/L (98-107); CREATININE 1.4 mg/dL (0.6-1.3); GLUCOSE 77 mg/dL (74-106); POTASSIUM 4.2 mmol/L (3.5-5.1); SODIUM SERUM 134 mmol/L (136-145); UREA NITROGEN, BLOOD 20 mg/dL (7-18)
[2020-01-08 17:45] LABS: ALANINE AMINOTRANSFERASE 8 U/L (12-78); ALBUMIN 3.3 g/dL (3.4-5.0); ALKALINE PHOSPHATASE 65 U/L (46-116); ASPARTATE AMINOTRANSFERASE 15 U/L (15-37); BILIRUBIN,DIRECT 0.3 mg/dL (0.0-0.2); BILIRUBIN,TOTAL 0.9 mg/dL (0.2-1.0); LIPASE 96 U/L (73-393); TOTAL PROTEIN, SERUM 6.9 g/dL (6.4-8.2)
[2020-01-08] MEDS ORDERED: MAGNESIUM HYDROXIDE 30 ML UDC PO PRN (18:00)
[2020-01-08] MEDS ORDERED: HYDROCODONE/APAP 5/325MG 1 EACH TABLET PO PRN (18:00)
[2020-01-08] MEDS ORDERED: MAG HYDROX/AL HYDROX/SIMETH 30 ML UDC PO PRN (18:00)
[2020-01-08] MEDS ORDERED: ONDANSETRON HCL/PF 4 MG/2 ML VIAL IVP PRN (18:00)
[2020-01-08] MEDS ORDERED: LORAZEPAM INJ 2 MG/ML VIAL IV PRN (18:00)
[2020-01-08] MEDS ORDERED: ACETAMINOPHEN 325 MG TABLET PO PRN (18:00)
[2020-01-08] MEDS ORDERED: Z GUARD REMEDY 2 OZ OINT TP PRN (18:00)
[2020-01-08] MEDS ORDERED: TEMAZEPAM 15 MG CAPSULE PO PRN (18:00)
[2020-01-08] MEDS ORDERED: Magnesium 1GM/D5W 100ML PREMIX PIGGYBACK IV ONE (18:00)
[2020-01-08] MEDS ORDERED: TDAP [DIPH/PERTUSSIS/TET] 0.5 ML VIAL IM ONE ×2 (18:00→18:06)
--- NOTE | 2020-01-08 19:46 | NUR ---
REPORT GIVEN TO NIMESH CLAY FOR JC.
[2020-01-08 20:00] VITALS: BP 159/89
[2020-01-08 20:30] VITALS: BP 159/89
--- NOTE | 2020-01-08 20:30 | NUR ---
MS SUPERINTENDENT PRODUCTION INITIAL NOTES ADMIT PT FROM ER VIA CHALO ACCOMPANIED BY ER NURSE AND TECH. DX OF FAILURE TO THRIVE. PT IS ALERT ORIENTED X4, NOT IN ANY DISTRESS NOTED. SKIN WARM AND NOTED DRY TO TOUCH AND SKIN TEAR PRESENT ON HIS LEFT ELBOW, WRIST AND FOREARM. BREATHING EVEN AND NON-LABORED . HEPLOCK ON HIS RIGHT HAND PATENT AND INTACT. ORIENTED WHERE HE AT AND HOW TO USED THE CALL LIGHT SYSTEM. KEPT HIM WARM AND COMFORTABLE AT ALL TIMES. SNACKS SERVED PER PT REQUESTED, PLACE CALL LIGHT AT REACH, WILL CONTINUE MONITORING.
[2020-01-08] MEDS: IV NS 0.9% 1,000 ML IV PRN (21:21)
[2020-01-08] MEDS ORDERED: Magnesium 1GM/D5W 100ML PREMIX 100 ML IV ONE (22:23)
--- NOTE | 2020-01-09 | NUR ---
MS BRODERICK NOTES PT SLEEPING COMFORTABLY IN BED WITHOUT ANY DISTRESS NOTED. WILL CONTINUE MONITORING. PLACE CALL LIGHT AT REACH.
[2020-01-09 06:22] LABS: BASOPHILS % (AUTO) 0.5 % (0.0-2.0); EOSINOPHILS % (AUTO) 1.2 % (0.0-6.0); HEMATOCRIT 39 % (39-51); HEMOGLOBIN 13.1 g/dL (13.5-17.5); LYMPHOCYTES # (AUTO) 2.4 /CMM (0.8-4.8); LYMPHOCYTES % (AUTO) 34.3 % (20.0-44.0); MEAN CORPUSCULAR HGB CONC 33 g/dl (31.0-36.0); MEAN CORPUSCULAR VOLUME 86 fL (80-96); MONOCYTES # (AUTO) 0.7 /CMM (0.1-1.30); MONOCYTES % (AUTO) 10.6 % (2.0-12.0); NEUTROPHILS # (AUTO) 3.8 /CMM (1.8-8.9); NEUTROPHILS % (AUTO) 53.4 % (43.0-81.0); PLATELET COUNT (AUTO) 206 /CMM (150-450); RED BLOOD CELL COUNT(AUTO) 4.56 MIL/uL (4.5-6.0)
[2020-01-09 06:55] LABS: CREATININE 1.3 mg/dL (0.6-1.3); MAGNESIUM 1.9 mg/dL (1.8-2.4); PHOSPHORUS 2.2 mg/dL (2.5-4.9); POTASSIUM 3.5 mmol/L (3.5-5.1)
[2020-01-09 07:00] LABS: THYROID STIMULATING HORMONE 6.87 uIU/mL (0.358-3.74)
--- NOTE | 2020-01-09 07:18 | NUR ---
ms swing type lathe operator closing notes pt woke up with smile on his face. he seems rest well and slept well. denies any discomfort. he only requested at this time is black coffee. Stable throughout the night . IVf still infusing on his right hand . kept him warm and comfortable at all times. bed in low and lock in position with side railsx2 up and bed alarm set for safety. place call light at reach. endorse to am nurse for continuity of care.
--- NOTE | 2020-01-09 07:43 | NUR ---
MS/RN Opening note Patient received from disaster response director. A/O X3, vital signs stable, no fevers noted. Denie any pain or discomfort at this time. IV fluids infusing at 75ml/hr via right hand 18g. No signs of infiltration seen. Call light within reach, bed in low setting, side rails X3 in upright position. Bed alarm switched on for safety. Patient reminded to call for assistance before getting out of bed. Will continue to monitor and ensure safety.
[2020-01-09 08:00] VITALS: BP 136/76
[2020-01-09] MEDS: THIAMINE HCL 100 MG TABLET PO SCH (08:09)
[2020-01-09] MEDS: PANTOPRAZOLE 40 MG TABLET.DR PO SCH (08:09)
--- NOTE | 2020-01-09 09:15 | NUR ---
MS/RN S/B Dr Fu Seen by Dr Fu - consults for Dr Haddad and Dr Lopez called. Patient to be observed for any signs and symptoms of alcohol withdrawal, labs ordered for tomorrow.
[2020-01-09] MEDS: ASPIRIN 325 MG TABLET PO SCH (09:39)
[2020-01-09] MEDS: AMLODIPINE BESYLATE 5 MG TABLET PO SCH (09:39)
[2020-01-09] MEDS: FOLIC ACID 1 MG TABLET PO SCH (09:39)
--- NOTE | 2020-01-09 09:53 | NUR ---
MS/RN Physical therapy Seen by PT - able to get out of bed with minimal assist, standby assist when ambulating.
[2020-01-09] MEDS: ENSURE ENLIVE CHOC 237 ML CAN PO SCH ×2 (13:00→17:27)
--- NOTE | 2020-01-09 15:16 | NUR ---
PAULINE CONSULT: seafood process worker received a call from Ines ([phone]), Adult System Integration Engineer with the [facility] regarding an open APS case filled on the pt for self-neglect. PAULINE Chacon reported the report was filled due to the pt living alone, having no food in his home, not eating for weeks at a time, excessive alcohol abuse, and constant falls. PAULINE Chacon asked SW to interview the pt and follow up on this report since the pt is currently under our care. PAULINE Chacon expressed concern on the pt being safely discharged, and recommended the pt have a psychiatric evaluation, mental capacity evaluation, and placement at a facility upon discharge. PAULINE notified Ines that we can provide a psychiatric evaluation and consider placement for the pt upon discharge however, we cannot provide a mental capacity evaluation. PAULINE confirmed with Telemetry 3rd Floor CRN that a psychiatric evaluation was ordered for the pt. PALUINE conducted a review of the pts chart prior to the consult. SW met with the pt at bedside. Pt was alert, oriented, and pleasant. Pt reported he currently lives alone at [address] [place] [address] [place] [address]. Pt reported he has a brother, Oliver, who lives nearby but he is estranged from and has not talked to in approximately four years. Pt reported he also has a sister, Kayleen ([phone]) who lives in [place] and he is in contact with. Pt reported he has no additional support system or help in the area. Pt reported he cannot appropriately provide basic needs for himself, including food, because he does not cook nor grocery shop often. Pt reported he has gone weeks at a time without eating full meals but will buy snacks at the store at the same time he buys his liquor. Pt reported he drinks a pint of bourbon daily, and he wishes to stop drinking. SW provided drug and alcohol resources to the pt. Pt reported he also goes weeks without showering because he is afraid to fall. Pt reported he receives SSI and VA benefits at approximately $5,000 a month. Pt reported he does not use any DME at this time but feels as if he would benefit form a walker. Pt denied suicidal ideation. Pt denied homicidal ideation. Pt denied any history of psychiatric diagnosis or psychotropic medication regimen. PAULINE presented the option of discharging to a placement (SNF/assisted living) for safety and additional support to the pt. Pt reported he is agreeable to discharging to a facility however, he is concerned about paying his rent for the upcoming month. Pt asked SW to contact his apartment manager php to inform him of his hospitalization. SW contacted Patricia at [facility] ( ) and notified her of the pts hospitalization. Per Patricia, she will notify the apartment managers. SW notified MARIANO Castillo of a possible placement option upon discharge due to the pts inability to care for himself, fall risk, open APS report, and the recommendation from the APS PAULINE. Per Anna, she will work on finding the pt placement. SW contacted TYRONE Chacon to update her with the aforementioned information. Ines requested to speak to the pt, if the pt was agreeable. PAULINE visited the pt at 1315 in his room and asked if he was interested in speaking to TYRONE Chacon. Pt declined to speak to her. Ines notified. Per Ines, she will attempt to contact the pt again tomorrow and would like to be notified of the discharge plan and placement once there is one. Ines also reported that she will follow up with the pt upon discharge to assess the pts needs and provide services through APS given the open APS report for self-neglect. PAULINE also provided the pt with [facility] resources that cater to the elderly population and explained them to him. Pt responded, Yeah, whatever. Aforementioned information endorsed to Canal Structure Operator, Dr. Alejandra Watkins.
[2020-01-09 16:00] VITALS: BP 132/77
--- NOTE | 2020-01-09 16:30 | NUR ---
MS/RN Dr Lopez Phone consultation with Dr Lopez - kenny 7.5 mg ordered to be taken HS.
[2020-01-09] MEDS ORDERED: K PHOS NEUTRAL 250 MG TABLET PO ONE (17:30)
[2020-01-09] MEDS: IV NS 0.9% 1,000 ML IV PRN (17:41)
--- NOTE | 2020-01-09 18:33 | NUR ---
MS/RN End note Patient remains in stable condition, no new needs or concerns, will endorse to shift supervisor film processing.
--- NOTE | 2020-01-09 19:30 | NUR ---
MS RN NOTES RECEIVED ON BED SLEEPING,AROUSABLE TO VERBAL STIMULI,BREATHING REGULAR,NOT IN ANY FORM OF DISTRESS.IVF NS AT 75ML/HR RATE IN PROGRESS ON RIGHT HAND,NOTED SKIN TEAR ON LEFT WRIST,ELBOW AND FOREARM.FALL RISK DUE TO WEAKNESS,BED ON LOWEST POSITION AND LOCK.BED ALARM TRIGGERED.CALL LIGHT IN REACH,NEEDS ANTICIPATED.
[2020-01-09 20:00] VITALS: BP 152/85
[2020-01-09] MEDS ORDERED: ATORVASTATIN 40 MG TABLET PO SCH (22:00)
[2020-01-09] MEDS ORDERED: MIRTAZAPINE 15 MG TABLET PO SCH (22:00)
--- NOTE | 2020-01-10 06:00 | NUR ---
MS RN NOTES SLEEP WELL AT NIGHT.EASILY GETS AGITATED.NO FALL,NO INJURY,IVF INFUSING,IN NO ACUTE DISTRESS.WILL ENDORSE TO DAY NURSE FOR JC.
[2020-01-10 06:52] LABS: CALCIUM, SERUM 8.3 mg/dL (8.5-10.1); CREATININE 1.3 mg/dL (0.6-1.3); PHOSPHORUS 1.8 mg/dL (2.5-4.9); POTASSIUM 3.8 mmol/L (3.5-5.1)
[2020-01-10 08:00] VITALS: BP 144/78
--- NOTE | 2020-01-10 08:00 | NUR ---
MS RN NOTES RECEIVED ON BED SLEEPING,AROUSABLE TO VERBAL STIMULI,BREATHING REGULAR,NOT IN ANY FORM OF DISTRESS.IVF NS AT 75ML/HR RATE IN PROGRESS ON RIGHT HAND,NOTED SKIN TEAR ON LEFT WRIST,ELBOW AND FOREARM.FALL RISK DUE TO WEAKNESS,BED ON LOWEST POSITION AND LOCK.BED ALARM TRIGGERED.PT IS ANXIOUS,IRRITABLE AND RUDE TO STAFF AT TIMES. ATIVAN IV GIVEN.TOOK ALL HIS AM PO MEDS, CALL LIGHT WITHIN REACH,NEEDS ANTICIPATED.
[2020-01-10 09:12] VITALS: BP 144/78
[2020-01-10] MEDS: FOLIC ACID 1 MG TABLET PO SCH (09:12)
[2020-01-10] MEDS: THIAMINE HCL 100 MG TABLET PO SCH (09:12)
[2020-01-10] MEDS: AMLODIPINE BESYLATE 5 MG TABLET PO SCH (09:12)
[2020-01-10] MEDS: ASPIRIN 325 MG TABLET PO SCH (09:12)
[2020-01-10] MEDS: PANTOPRAZOLE 40 MG TABLET.DR PO SCH (09:17)
[2020-01-10] MEDS: ENSURE ENLIVE CHOC 237 ML CAN PO SCH ×2 (09:22→12:00)
--- NOTE | 2020-01-10 10:34 | NUR ---
WOUND CARE CONSULT: PT PRESENTS WITH SKIN TEARS TO LEFT ELBOW AND ARM, PRESENT ON ADMISSION. RECOMMENDATIONS MADE FOR WOUND CARE AND SKIN PROTECTION. DISCUSSED WITH NURSING STAFF. PT IS INCONTINENT AT TIMES. WILL SEE PRN. ROSAS IN AGREEMENT WITH PLAN OF CARE. Addendum: 01/10/20 at 1036 by PRISCA LOCKE WNDNU Amended: Links added.
[2020-01-10] MEDS ORDERED: NEUTRA PHOS 1 POWD.PACKET PO ONE (12:00)
[2020-01-10] MEDS ORDERED: K PHOS NEUTRAL 250 MG TABLET PO ONE (14:00)
[2020-01-10] MEDS ORDERED: LOPERAMIDE HCL (2 MG CAP) 2 MG CAPSULE PO ONE (15:00)
--- NOTE | 2020-01-10 16:20 | NUR ---
DISCHARGED PT TO [facility] AND CALLED IN REPORT TO NIMESH CARR. PT REFUSED TO HAVE PHOTOS OF SKIN ISSUES TO BE TAKEN INSPITE OF EXPLAINING THE RISKS AND BENEFITS. WOUND TX DONE TO SKIN TEARS TO LT ARM AND LT ELBOW ORDERED. IV H/L REMOVED TO RT HAND WITH NO BLEEDING NOTED. PT REFUSED TO HAVE HIS MONEY CHECKED AND COUNTED INFRONT OF HIM INSPITE OF EXPLAINING THE IMPORTANCE OF COUNTING HIS MONEY EXPLAINING THAT WE DON'T WANT TO BE ACCOUNTABLE FOR ANY LOSS.
== END 2020-01-10 16:20 | DRG 640 ==
LOC: ER 16:48 → MED 19:35
PROVIDERS: ADMIT Nurse Practitioner Acute Care; ATTEND Nurse Practitioner Acute Care
DX: R62.7 Adult failure to thrive (principal); E43 Unspecified severe protein-calorie malnutrition; N17.0 Acute kidney failure with tubular necrosis; Z68.1 Body mass index [BMI] 19.9 or less, adult; R64 Cachexia; F33.1 Major depressive disorder, recurrent, moderate; E86.0 Dehydration; I10 Essential (primary) hypertension; Z79.82 Long term (current) use of aspirin; Z79.899 Other long term (current) drug therapy; F10.20 Alcohol dependence, uncomplicated; Y90.0 Blood alcohol level of less than 20 mg/100 ml; F17.200 Nicotine dependence, unspecified, uncomplicated; E83.42 Hypomagnesemia; E78.5 Hyperlipidemia, unspecified; E83.39 Other disorders of phosphorus metabolism; R29.6 Repeated falls; E11.9 Type 2 diabetes mellitus without complications; Z91.81 History of falling
CPT/HCPCS: 36415; 70450-TC; 71045-TC; 80048-TC; 80061-TC; 80076-TC; 83690-TC; 83735-TC; 84100-TC; 84439-TC; 84443-TC; 84484-TC; 85025-TC; 87081-TC; 90715; 97116-TC; 97530-TC; G0378; G0480; J2060; J2405; J3475; J7030